=== PATIENT | male | born 1955 | race Caucasian/White ===

== ENCOUNTER 2016-10-24 15:08 | Emergency (ER) | payer SELFPAY ==
[2016-10-24 16:22] LABS: Blood, Urine Moderate (Negative); Glucose, Urine (Dipstick) Negative (Negative); Leukocyte Negative (Negative); Nitrite Negative (Negative); Protein, Urine (Dipstick) 100 mg/dL (Neg-Trace); Urobilinogen 0.2 mg/dL (0.2-1.0)
[2016-10-24 16:36] LABS: Bilirubin Small (Negative); Clarity Hazy (Clear); Icto Negative (Negative); Specific Gravity, Urine 1.022 (1.005-1.030)
[2016-10-24 16:37] LABS: Bacteria/HPF 3+ HPF (None Seen); Crystals/HPF 1+ AMORPH URATES HPF (Negative); Hyaline Casts/LPF 7-10 HYALINE CAST LPF (0-3 Hyaline); Other Casts/LPF 4-6 MIXED CASTS LPF (0-3 Hyaline); Transitional Epithelial 0-3 HPF (0-3); Yeast-All Forms Rare HPF (None Seen)
--- NOTE | 2016-10-24 16:38 | CT ---
CT ABDOMEN AND PELVIS 10/24/16 COMPARISON: None. HISTORY: Left lower abdominal pain. TECHNIQUE: Serial axial CT imaging at 5 mm intervals from lung bases through pubic symphysis without contrast. Coronal reformatted imaging obtained. FINDINGS: There is a right lower lobe granuloma on image 2. Imaged lung bases appear unremarkable otherwise. T here is no free intraperitoneal air. Gallbladder is surgically absent. Limited assessment of the inocencia er and spleen without contrast is unremarkable. Pancreas and right adrenal gland appear grossly unre markable. There is a mass in the left adrenal gland with Hounsfield units of approximately 6-7, kt uring 2.4 cm, consistent with an adrenal adenoma. There are numerous low density exophytic lesions emanating from both kidneys. This includes a cyst e manating from the upper pole of the right kidney measuring 3.4 cm. There are numerous small exophyti c right renal lesions which are too small to characterize. There is an exophytic lesion emanating fr om the mid pole of the right kidney posteriorly with Hounsfield units of 25, measuring at least 2.6 cm, which does not meet criteria for a simple cyst. There is a large subcapsular hyperdense lesion associated with the mid pole and lower pole of the le ft kidney, most consistent with a subcapsular hematoma. This measures at least 7.2 x 5.2 x 6.7 cm. T here are numerous exophytic lesions emanating from the left kidney, many of which demonstrate Hounsf ield units greater than that expected for simple cyst. Lesions may represent complex cysts or solid masses. This includes a mid pole lesion measuring 1.8 cm adjacent to the above described subcapsular hematoma. There is associated diffuse stranding and fluid of increased density consistent with hemo rrhage throughout the perirenal space extending inferiorly along the course of the left ureter. Ther e is no stone in the region of the left kidney or along the course of the left ureter. Bilateral fat containing inguinal hernias are present. There is no evidence for large or small bowel obstruction. No focal area of bowel inflammatory lechuga e. Appendix within normal limits. There is extensive atherosclerotic calcification of the abdominal aorta and its branches. There is a n infrarenal abdominal aortic aneurysm measuring 3.0 x 3.0 cm. There is a 2.6 x 2.7 cm area of ectas ia involving the infrarenal abdominal aorta just proximal to the bifurcation. No acute osseous abnormality is seen. There are degenerative changes involving the lumbar spine, bilateral hips and the pubic symphysis. N o worrisome lytic or blastic bone lesion identified. IMPRESSION: 1. Large subcapsular hematoma associated with the left kidney with mass effect on the left kidn ey. Etiology is uncertain. This likely represents a lesion which has bled, be it a hemorrhagic cyst or a solid renal mass such as renal cell carcinoma. There is extension into the perirenal space post eriorly and inferior to the left kidney. Urology consultation advised. 2. Numerous exophytic renal lesions, incompletely characterized on this exam. Bilateral lesions demonstrate Hounsfield units above that expected for simple cyst and thus these lesions could be on the basis of hemorrhagic cysts or solid renal masses. Renal mass protocol CT advised for follow up assessment. 3. Abdominal aortic aneurysm. Results called to Dr. Perez at 4:15 p.m., 10/24/16. Code CR POS: PRASHANT
[2016-10-24 16:39] LABS: ALT (SGPT) 43 U/L (8-55); AST (SGOT) 21 U/L (5-34); Albumin 4.1 g/dL (3.5-5.0); Alkaline Phosphatase 121 U/L (40-150); Anion Gap 19 mmol/L (10-20); BUN (Urea Nitrogen) 14 mg/dL (8.4-25.7); Bilirubin, Total 0.9 mg/dL (0.2-1.2); Calc. Creatinine Clearance 0 mL/min (70-130); Calcium 9.5 mg/dL (7.8-10.44); Carbon Dioxide 18 mmol/L (22-29); Chloride 102 mmol/L (98-107); Estimated GFR-MDRD 64; Globulin 3.2 g/dL (2.4-3.5); Glucose 153 mg/dL (70-105); Protein, Total 7.3 g/dL (6.0-8.3); Sodium 135 mmol/L (136-145)
[2016-10-24 16:42] LABS: %Lymphocytes 3.7 % (21.0-51.0); %Monocytes 6.9 % (0.0-10.0); %Neutrophils 88.5 % (42.0-75.0); Hemoglobin 18.2 g/dL (14.0-18.0); Mean Corpuscular HGB CONC 34.5 g/dL (32.0-36.0); Mean Corpuscular Hemoglobin 32.6 pg (27.0-31.0); Mean Corpuscular Volume 94.6 fL (80.0-94.0); Mean Platelet Volume 7.9 fL (7.4-10.4); Platelet Count 338 thou/uL (130-400); RBC Distribution Width 12.9 % (11.5-14.5); Red Blood Cell (RBC) Count 5.59 mill/uL (4.70-6.10); White Blood Cell (WBC) Count 19.1 thou/uL (4.8-10.8)
[2016-10-24 16:43] LABS: #Basophils 0.2 thou/uL (0.0-0.2); #Lymphocytes 0.7 thou/uL (1.20-3.40); #Monocytes 1.3 thou/uL (0.11-0.59); #Neutrophils 16.9 thou/uL (1.40-6.50); %Basophils 0.9 % (0.0-1.0)
[2016-10-24] MEDS ORDERED: Morphine Sulfate 2 MG/ML SYRINGE ONE (16:51)
== END 2016-10-24 17:42 | disposition short-term general hospital (02) ==
LOC: MADERS 15:08
DX: N28.89 Other specified disorders of kidney and ureter (principal); I10 Essential (primary) hypertension; F17.210 Nicotine dependence, cigarettes, uncomplicated; I25.2 Old myocardial infarction; Z86.73 Personal history of transient ischemic attack (TIA), and cerebral infarction without residual deficits; Z79.82 Long term (current) use of aspirin; Z79.899 Other long term (current) drug therapy
CPT/HCPCS: 36415; 74176; 80053; 81003; 81015; 85025; 87086; 96374; J2270